=== PATIENT | male | born 1960 | race Caucasian/White ===

== ENCOUNTER 2016-03-22 10:12 | Outpatient (CLI) | payer MEDICARE, MEDICAID ==
[2016-03-22 11:32] LABS: ALT (SGPT) 19 U/L (0-55); AST (SGOT) 18 U/L (5-34); Alkaline Phosphatase 70 U/L (40-150); Anion Gap 14 mmol/L (10-20); BUN (Urea Nitrogen) 11 mg/dL (8.4-25.7); Bilirubin, Total 0.6 mg/dL (0.2-1.2); Calc. Creatinine Clearance 0 mL/min (70-130); Calcium 9.4 mg/dL (7.8-10.44); Carbon Dioxide 25 mmol/L (22-29); Chloride 102 mmol/L (98-107); Estimated GFR-MDRD 68; Globulin 3.6 g/dL (2.4-3.5); LDL Cholesterol, Calculated 94 mg/dL
[2016-03-22 12:16] LABS: #Eosinphils 0.2 thou/uL (0.0-0.7); #Lymphocytes 1.1 thou/uL (1.20-3.40); #Monocytes 0.5 thou/uL (0.11-0.59); #Neutrophils 3.3 thou/uL (1.40-6.50); %Basophils 0.9 % (0.0-1.0); %Eosinophils 3.1 % (0.0-10.0); %Monocytes 9.2 % (0.0-10.0); Mean Platelet Volume 6.4 fL (7.4-10.4); Red Blood Cell (RBC) Count 4.34 mill/uL (4.70-6.10); White Blood Cell (WBC) Count 5.1 thou/uL (4.8-10.8)
== END 2016-03-22 10:13 | disposition home or self-care (01) ==
LOC: HPCALD 10:12
PROVIDERS: ATTEND Family Medicine
DX: E78.5 Hyperlipidemia, unspecified (principal); G40.909 Epilepsy, unspecified, not intractable, without status epilepticus; I10 Essential (primary) hypertension
CPT/HCPCS: 36415; 80053; 80061; 80156; 85025

== ENCOUNTER 2017-07-18 09:47 | Outpatient (CLI) | payer MEDICARE, MEDICAID ==
--- NOTE | 2017-07-18 17:46 | ULT ---
ABDOMINAL WALL ULTRASOUND 07/18/17 Ultrasonography of the anterior abdominal wall was done to evaluate a palpable nodule. Documentary im ages around the palpable abnormality were supplied. The nodule is poorly defined on ultrasound but me asures approximately 2.0 x 3.5 x 2.5 cm. It is slightly echogenic. Its margins are not purely discret e. It is definitely solid and not cystic, but no blood flow was seen within it. IMPRESSION: Small nodule with nondescript ultrasonographic findings. The ultrasound does not allow a diagnosis of what it may be. The fact that there is no significant blood flow makes it more likely that it is curry ign than not. It does prove that it is not a cyst. POS: HOME
== END 2017-07-18 09:48 | disposition home or self-care (01) ==
LOC: BURULT 09:47
PROVIDERS: ATTEND Family Medicine
DX: R22.2 Localized swelling, mass and lump, trunk (principal)
CPT/HCPCS: 76999

== ENCOUNTER 2017-08-04 21:02 | Emergency (ER) | payer MEDICARE, MEDICAID ==
[2017-08-04 21:24] LABS: Hemoglobin 14.3 g/dL (14.0-18.0); Mean Corpuscular HGB CONC 37.8 g/dL (32.0-36.0); Mean Corpuscular Hemoglobin 34.4 pg (27.0-31.0); Mean Corpuscular Volume 90.9 fL (78.0-98.0); Mean Platelet Volume 5.9 fL (7.4-10.4); Platelet Count 176 thou/uL (130-400); RBC Distribution Width 10.7 % (11.5-14.5); Red Blood Cell (RBC) Count 4.16 mill/uL (4.70-6.10); White Blood Cell (WBC) Count 4.6 thou/uL (4.8-10.8)
[2017-08-04] MEDS ORDERED: Nitroglycerin 0.4 MG TAB (25 Tab Bottle) ONE (21:32)
[2017-08-04] MEDS ORDERED: Ondansetron HCl/PF 4 MG/2 ML Vial ONE (21:32)
[2017-08-04 21:34] LABS: ALT (SGPT) 54 U/L (8-55); AST (SGOT) 37 U/L (5-34); Albumin 4.4 g/dL (3.5-5.0); Alkaline Phosphatase 81 U/L (40-150); Anion Gap 17 mmol/L (10-20); BUN (Urea Nitrogen) 11 mg/dL (8.4-25.7); Bilirubin, Total 0.3 mg/dL (0.2-1.2); CK (CPK) 153 U/L (30-200); Calc. Creatinine Clearance 0 mL/min (70-130); Calcium 9.3 mg/dL (7.8-10.44); Carbon Dioxide 20 mmol/L (22-29); Chloride 101 mmol/L (98-107); Estimated GFR-MDRD 77; Globulin 3.4 g/dL (2.4-3.5); Glucose 85 mg/dL (70-105); Lipase 27 U/L (8-78); Potassium 3.9 mmol/L (3.5-5.1); Protein, Total 7.8 g/dL (6.0-8.3); Sodium 134 mmol/L (136-145)
[2017-08-04 21:35] LABS: #Basophils 0.1 thou/uL (0.0-0.2); #Eosinphils 0.1 thou/uL (0.0-0.7); #Lymphocytes 1.6 thou/uL (1.20-3.40); #Monocytes 0.6 thou/uL (0.11-0.59); #Neutrophils 2.2 thou/uL (1.40-6.50); %Eosinophils 2.6 % (0.0-10.0); %Lymphocytes 35.1 % (21.0-51.0); %Monocytes 11.9 % (0.0-10.0); %Neutrophils 48.4 % (42.0-75.0); PLT Morphology Comment Appears Adequate; RBC Morphology Normal; Troponin I Less than 0.010 ng/mL (< 0.028)
[2017-08-04 21:36] LABS: MDiff Complete? YES; Manual Diff?? NO
[2017-08-04] MEDS ORDERED: Nitroglycerin 2% Ointment 1 INCH/1 GM Packet ONE (21:59)
--- NOTE | 2017-08-05 09:56 | RAD ---
PORTABLE CHEST: DATE: 08/04/17. FINDINGS: An AP portable film at 2055 is compared with an 12/23/[address] [facility]. There has been no adverse interval change. The heart is normal in size and the lungs are clear. No infiltrate or effusion is seen. There is no vascular congestion or edema. The mediastinum appears n ormal. The trachea is midline. IMPRESSION: No acute thoracic finding. POS: HOME
== END 2017-08-04 22:19 | disposition short-term general hospital (02) ==
LOC: BURERS 21:02
DX: I20.0 Unstable angina (principal); I10 Essential (primary) hypertension; Z87.891 Personal history of nicotine dependence; Z79.899 Other long term (current) drug therapy
CPT/HCPCS: 71045; 80053; 82553; 83690; 84484; 85025; 93005; 96361; 96374; J2405

== ENCOUNTER 2018-08-02 16:33 | Emergency (ER) | payer MEDICARE, MEDICAID ==
[~2018-08-02 16:33] MED LIST: Iopamidol 370 76% 100 ML VIAL ONE
[2018-08-02] MEDS ORDERED: Dextrose 50% Abboject 50 ML SYRINGE ONE (16:57)
[2018-08-02] MEDS ORDERED: Thiamine HCl 200 MG/2 ML VIAL ONE (16:57)
[2018-08-02] MEDS ORDERED: Multivit, Adult Inj 10 ML VIAL ONE (16:58)
[2018-08-02 17:12] LABS: Hemoglobin 13.8 g/dL (14.0-18.0); Mean Corpuscular HGB CONC 34.2 g/dL (32.0-36.0); Mean Corpuscular Hemoglobin 33.4 pg (27.0-31.0); Mean Corpuscular Volume 97.9 fL (78.0-98.0); Mean Platelet Volume 6.4 fL (7.4-10.4); Platelet Count 181 thou/uL (130-400); RBC Distribution Width 10.5 % (11.5-14.5); Red Blood Cell (RBC) Count 4.12 mill/uL (4.70-6.10); White Blood Cell (WBC) Count 5.2 thou/uL (4.8-10.8)
[2018-08-02 17:15] LABS: Band 9 % (5-11); Lymphocytes 24 % (21-51); MDiff Complete? YES; Monocytes 5 % (0-10); Neutrophil 60 % (42-75); Reactive Lymphocytes 2 % (0-10)
[2018-08-02 17:16] LABS: ALT (SGPT) 27 U/L (8-55); AST (SGOT) 20 U/L (5-34); Albumin 4.2 g/dL (3.5-5.0); Alkaline Phosphatase 67 U/L (40-150); Anion Gap 14 mmol/L (10-20); BUN (Urea Nitrogen) 8 mg/dL (8.4-25.7); Bilirubin, Total 0.4 mg/dL (0.2-1.2); Calc. Creatinine Clearance 0 mL/min (70-130); Calcium 9.2 mg/dL (7.8-10.44); Carbon Dioxide 20 mmol/L (22-29); Chloride 99 mmol/L (98-107); Estimated GFR-MDRD 89; Globulin 3.3 g/dL (2.4-3.5); Glucose 97 mg/dL (70-105); Lipase 12 U/L (8-78); Potassium 3.9 mmol/L (3.5-5.1); Protein, Total 7.5 g/dL (6.0-8.3); Sodium 129 mmol/L (136-145)
[2018-08-02 17:17] LABS: Acetaminophen Less than 6.0 mcg/mL (10.0-30.0); Alcohol Less than 10 mg/dL (Less than 10); Salicylate Less than 8.0 mg/dL (15.0-30.0)
[2018-08-02] MEDS ORDERED: Lorazepam 2 MG/ML VIAL ONE (17:52)
--- NOTE | 2018-08-02 18:08 | CT ---
CT OF THE BRAIN WITHOUT CONTRAST 08/02/[address] was performed for evaluation of nausea, vomiting, and lightheadedness. Comparison was made with an 12/23/15 study. The ventricles are normal in size for age and atrophy. No intracranial bleeding, mass, or sign of str celestino was found. The visible paranasal sinuses are clear, as are the mastoid air cells. IMPRESSION: No acute intracranial findings. POS: HOME
[2018-08-02] MEDS ORDERED: Ondansetron PF 4 MG/2 ML Vial ONE (18:24)
--- NOTE | 2018-08-02 18:28 | CT ---
CT ABDOMEN AND PELVIS WITH CONTRAST: 08/02/18 Comparison is made with the prior study of 02/01/11 done at [facility]. Axial slices were ac quired followed by coronal and sagittal reconstructions. The lung bases are clear except for some dependent atelectasis. The liver, spleen, pancreas, adrenal glands and abdominal aorta showed no acute findings. There has been a prior cholecystectomy. There ar e multiple hypolucencies in each kidney consistent with multiple cysts. A small renal mass would be m issed against this background. There is a large exophytic cystic lesion of the left kidney, lower sharla e. It measured 2.5 cm in 2011 and today measures 3.7 cm. The internal density is slightly higher denis n a typical cyst at 20 units, however, that is no different than the 2011 study. There are no inflammatory changes around bowel or bowel wall thickening. A few scattered diverticula are present without definite findings of diverticulitis. There is one fluid filled loop of distal sma ll bowel in the pelvic region but its rojas are not thick. There is no free air or free fluid noted. CT of the pelvis shows no pelvic masses, free fluid, or inflammatory changes. Degenerative changes ar e present in the patient's lumbar spine, particularly at L4-L5. Additionally, there is a rather large posterior osteophyte at T12-L1 that significantly crowds the spinal canal. IMPRESSION: 1. No acute abdominal or pelvic findings except for one loop of mildly dilated fluid filled smal l bowel. Infectious or inflammatory etiologies are possible. There is no sign of obstruction. 2. Multiple renal cysts including a large exophytic cyst of the left kidney. It is increased in size since 2010. POS: HOME
== END 2018-08-02 18:44 | disposition home or self-care (01) ==
LOC: BURERS 16:33
DX: R11.2 Nausea with vomiting, unspecified (principal); G40.909 Epilepsy, unspecified, not intractable, without status epilepticus; Z87.891 Personal history of nicotine dependence
CPT/HCPCS: 70450; 74177; 80053; 80307; 83605; 83690; 83880; 84484; 85025; 93005; 96365; 96366; 96368; 96375; J2060; J2405; J3411; Q9967

== ENCOUNTER 2019-01-24 08:06 | Emergency (ER) | payer MEDICARE, MEDICAID ==
[2019-01-24] MEDS ORDERED: Fentanyl 100 MCG/2 ML VIAL ONE (08:37)
[2019-01-24 08:43] LABS: #Basophils 0.1 thou/uL (0.0-0.2); #Eosinphils 0.1 thou/uL (0.0-0.7); #Lymphocytes 1.5 thou/uL (1.20-3.40); #Monocytes 0.9 thou/uL (0.11-0.59); %Basophils 0.6 % (0.0-1.0); %Eosinophils 0.4 % (0.0-10.0); %Lymphocytes 10.8 % (21.0-51.0); %Monocytes 6.4 % (0.0-10.0); %Neutrophils 81.8 % (42.0-75.0); Hemoglobin 14.9 g/dL (14.0-18.0); Mean Corpuscular HGB CONC 33.9 g/dL (32.0-36.0); Mean Corpuscular Hemoglobin 32.4 pg (27.0-31.0); Mean Corpuscular Volume 95.6 fL (78.0-98.0); Mean Platelet Volume 6.6 fL (7.4-10.4); Platelet Count 174 thou/uL (130-400); RBC Distribution Width 10.9 % (11.5-14.5); White Blood Cell (WBC) Count 13.4 thou/uL (4.8-10.8)
[2019-01-24 08:47] LABS: Bilirubin Small (Negative); Blood, Urine Negative (Negative); Clarity Clear (Clear); Glucose, Urine (Dipstick) Negative (Negative); Leukocyte Negative (Negative); Nitrite Negative (Negative); Protein, Urine (Dipstick) 30 mg/dL (Neg-Trace); Urobilinogen > or = 8.0 mg/dL (Less than 2)
[2019-01-24 08:57] LABS: ALT (SGPT) 27 U/L (8-55); AST (SGOT) 19 U/L (5-34); Albumin 4.3 g/dL (3.5-5.0); Alkaline Phosphatase 79 U/L (40-110); Anion Gap 14 mmol/L (10-20); BUN (Urea Nitrogen) 13 mg/dL (8.4-25.7); Bilirubin, Total 1.3 mg/dL (0.2-1.2); Calc. Creatinine Clearance 0 mL/min (70-130); Calcium 9.6 mg/dL (7.8-10.44); Carbon Dioxide 24 mmol/L (22-29); Chloride 101 mmol/L (98-107); Estimated GFR-MDRD 66; Globulin 3.7 g/dL (2.4-3.5); Glucose 122 mg/dL (70-105); Sodium 135 mmol/L (136-145)
[2019-01-24 09:00] LABS: Bacteria/HPF Rare-Few HPF (None Seen); RBC/HPF 0-3 HPF (0-3); Squamous Epithelial 0-3 HPF (0-3); WBC/HPF 0-3 HPF (0-3)
[2019-01-24] MEDS ORDERED: Piperacillin/Tazobactam 4.5 GM VIAL ONE (09:01)
[2019-01-24] MEDS ORDERED: Ciprofloxacin Lactate/D5W 400 mg/200 ml Premix ONE (09:51)
--- NOTE | 2019-01-24 16:44 | CT ---
CT ABDOMEN AND PELVIS WITH CONTRAST: 01/24/[address] of the abdomen and pelvis was done after giving IV contrast. The lung bases are clear except for some dependent atelectasis. The liver is minimally generous in si ze but otherwise appears normal. The spleen and pancreas are unremarkable. There has been a prior cho lecystectomy. There is a little more fluid than usual and perhaps even a little bit of mucosal thicke ally in the duodenum and proximal jejunum, but there are no distended loops to suggest obstruction. S imilarly in the cecal region there is some questionable thickening of folds. The kidneys show multip le cysts, the largest being a large exophytic cyst attached to the left kidney that is 3.8 cm long. T he aorta is normal in size. The major finding on the study is an area of prominent inflammation around the sigmoid colon. Diverti culitis is diagnosed. On one image, there is a question of a tiny amount of extraluminal air. I canno t tell if it is truly extraluminal or in a diverticulum. There is no focal drainable abscess. No sign ificant amount of free fluid was seen. CT of the pelvis was remarkable for the diverticular findings. The urinary bladder shows some uniform thickening, though the bladder is not fully distended, so it may or may not have meaning. There may be some minimal disc bulging at L4-L5 and L5-S1. Some mild arthritic changes are see in the lumbar sp ine. IMPRESSION: Sigmoid diverticulitis. See discussion above. Findings discussed with Dr. Harris at 0936 on 01/24/19. POS: HOME
== END 2019-01-24 10:09 | disposition home or self-care (01) ==
LOC: BURERS 08:06
DX: K57.20 Diverticulitis of large intestine with perforation and abscess without bleeding (principal); I10 Essential (primary) hypertension; R11.2 Nausea with vomiting, unspecified; G40.409 Other generalized epilepsy and epileptic syndromes, not intractable, without status epilepticus; F32.9 Major depressive disorder, single episode, unspecified; Z87.891 Personal history of nicotine dependence; Z79.899 Other long term (current) drug therapy
CPT/HCPCS: 74177; 80053; 81003; 81015; 83605; 85025; 96365; 96375; J0744; J2543; J3010

== ENCOUNTER 2019-08-25 09:36 | Outpatient (CLI) | payer MEDICARE, MEDICAID ==
--- NOTE | 2019-08-25 14:15 | RAD ---
RIGHT KNEE 4 VIEWS: DATE: 08/25/2019. FINDINGS: No fracture, joint space narrowing, or osteophytes were seen. There is no joint effusion. No bony d estructive lesions are present. On some of the views, there was a questionable slight lucency along the articular aspect of the media l femoral condyle like what might be seen from an old osteochondral injury. The finding is faint and equivocal at best. If further workup were needed, an MRI might be helpful, but currently the appear ance of the finding is not very overwhelming. IMPRESSION: Probably negative study. POS: HOME
== END 2019-08-25 09:37 | disposition home or self-care (01) ==
LOC: BURRAD 09:36
PROVIDERS: ATTEND Family Medicine
DX: M25.561 Pain in right knee (principal)

== ENCOUNTER 2019-12-08 09:23 | Observation (INO) | payer MEDICARE, MEDICAID ==
[2019-12-08 10:02] LABS: #Lymphocytes 0.9 thou/uL (1.20-3.40); #Monocytes 0.2 thou/uL (0.11-0.59); #Neutrophils 2.4 thou/uL (1.40-6.50); %Basophils 0.8 % (0.0-1.0); %Eosinophils 1.3 % (0.0-10.0); %Lymphocytes 24.1 % (21.0-51.0); %Monocytes 6.8 % (0.0-10.0); %Neutrophils 67.1 % (42.0-75.0); Hemoglobin 14.9 g/dL (14.0-18.0); Mean Corpuscular HGB CONC 33.2 g/dL (32.0-36.0); Mean Corpuscular Volume 99.4 fL (78.0-98.0); Mean Platelet Volume 6.9 fL (7.4-10.4); Platelet Count 205 thou/uL (130-400); RBC Distribution Width 10.3 % (11.5-14.5); Red Blood Cell (RBC) Count 4.52 mill/uL (4.70-6.10); White Blood Cell (WBC) Count 3.6 thou/uL (4.8-10.8)
[2019-12-08 10:21] LABS: ALT (SGPT) 98 U/L (8-55); AST (SGOT) 59 U/L (5-34); Albumin 3.8 g/dL (3.5-5.0); Alkaline Phosphatase 86 U/L (40-110); Anion Gap 13 mmol/L (10-20); BUN (Urea Nitrogen) 15 mg/dL (8.4-25.7); Bilirubin, Total 0.4 mg/dL (0.2-1.2); Calc. Creatinine Clearance 0 mL/min (70-130); Calcium 9.1 mg/dL (7.8-10.44); Carbon Dioxide 25 mmol/L (22-29); Chloride 105 mmol/L (98-107); Estimated GFR-MDRD 78; Globulin 3.9 g/dL (2.4-3.5); Glucose 126 mg/dL (70-105); Lipase 57 U/L (8-78); Potassium 3.6 mmol/L (3.5-5.1); Protein, Total 7.7 g/dL (6.0-8.3); Sodium 139 mmol/L (136-145)
[2019-12-08] MEDS ORDERED: Albuterol Sulfate 2.5 mg/3 ml Neb ONE (10:34)
[2019-12-08] MEDS ORDERED: Dexamethasone 4 mg/ml Vial ONE (10:36)
[2019-12-08] MEDS ORDERED: Albuterol 200 PUFF (6.7GM INHALER) ONE (10:36)
[2019-12-08] MEDS ORDERED: Aspirin Chewable 81 MG TAB ONE (10:36)
[2019-12-08] MEDS ORDERED: Ondansetron PF 4 MG/2 ML Vial ONE (10:36)
[2019-12-08] MEDS ORDERED: cefTRIAXone\\ROCEPHIN 2 GM VIAL ONE (11:17)
[2019-12-08 12:27] LABS: INR-International Normal Ratio 0.9; Prothrombin Time 12.6 sec (12.0-14.7)
[2019-12-08 12:47] LABS: Lactic Acid 1.2 mmol/L (0.5-2.2)
--- NOTE | 2019-12-08 13:33 | RAD ---
PORTABLE CHEST: Date: 12/08/2019 An AP portable film at 1100 hours is compared with the 08/04/2017 study. Some of the lung markings are perhaps slightly prominent, but no focal infiltrate or effusion seen. T he heart is normal in size. There is no vascular congestion or edema. No focal pneumonia was found. IMPRESSION: No definite acute findings. POS: HOME
--- NOTE | 2019-12-08 13:47 | CT ---
CT ANGIO OF CHEST: Date: 12/08/2019] Spiral CT of the chest was done after a bolus of IV contrast. There is excellent opacification of pul monary arteries. There were no filling defects to suggest emboli. The aorta showed no sign of aneurys m or dissection. Coronary artery calcification seems minimal. No mediastinal adenopathy of concern or mass was seen. The major finding on this study is severe emphysematous change throughout the lungs b ilaterally, with particular severe cystic changes in the upper lobes. Some fibrotic changes and atele ctasis are seen in the dependent portions of the lower lobes. No effusions are present. The visible p ortions of the upper abdomen showed no finding of concern. IMPRESSION: 1. No evidence for pulmonary embolism. 2. Very severe emphysematous changes. No findings of pneumonia at this time. 3. Comment: Not mentioned above, but present, are some areas of scarring in the lung apices. One of those areas in the very top of the left lung apex is slightly spiculated and is about 1.0 cm in size. While the odds are this is just scarring, in view of the remainder of the patient's lungs, it might be prudent to get a follow-up chest x-ray of this area in the next 3-6 months, checking for any poten tial growth. Findings discussed with Dr. Helms at 1149 hours on 01/08/2020. CODE CR. POS: HOME
[2019-12-08 15:34] VITALS: BMI 26.6
[2019-12-08] MEDS ORDERED: Acetaminophen 325 MG TAB PO PRN (16:45)
[2019-12-08] MEDS ORDERED: Ondansetron PF 4 MG/2 ML Vial IVP PRN (16:45)
[2019-12-08] MEDS ORDERED: Ondansetron ODT 4 MG TAB SL PRN (16:45)
[2019-12-08] MEDS ORDERED: Cyclobenzaprine 10 MG TAB PO PRN (17:00)
[2019-12-08] MEDS ORDERED: Iopamidol 370 76% 100 ML VIAL ONE (17:02)
[2019-12-08] MEDS ORDERED: Dextrose 5 %-0.45 % NaCl 1,000 ML IV SCH (17:15)
[2019-12-08] MEDS: Albuterol 200 PUFF (6.7GM INHALER) INH SCH ×2 (17:59→21:40)
[2019-12-08] MEDS ORDERED: Enoxaparin Sodium 40 MG/0.4 ML SYRINGE SC SCH (21:00)
[2019-12-08] MEDS: Diazepam 5 MG TAB PO SCH (21:36)
[2019-12-08] MEDS: Famotidine 20 MG TAB PO SCH (21:36)
[2019-12-08] MEDS: Mometasone/Formoterol 200/5 60 PUFF INH SCH (21:36)
[2019-12-08] MEDS: carBAMazepine 200 MG TAB PO SCH (21:36)
[2019-12-08] MEDS: Gabapentin 300 MG CAP PO SCH (21:36)
--- NOTE | 2019-12-09 01:16 | HP ---
CHIEF COMPLAINT: Generalized weakness. HISTORY OF PRESENT ILLNESS: 59-year-old male presented to the [facility] Emergency Department earlier today with complaints of progressive worsening of body aches, weakness, generalized malaise accompanied by dyspnea, cough, and poor intake. The patient was evaluated at the [facility] on 12/03/2019, five days ago for similar symptoms, in which he was tested for COVID and the patient was started empirically at that time on azithromycin and daily dexamethasone. Subsequent testing for COVID was found to be positive couple days later. Patient states he initially did feel better, but has since declined in regard to his respiratory status and in overall intake. Patient reports his last fever was several days ago. He reports to be taking the prescribed medications as scheduled. He is a former smoker, but has up to this point no formal diagnosis of COPD. In the emergency department, imaging was obtained and concerning for very severe emphysematous changes. The initial lab work showed an elevated D-dimer and elevated lactic acid as well. CTA of the chest did rule out pulmonary embolus, but did reveal the emphysematous changes of the patient's lungs. The patient was treated with 2 g IV Rocephin, 10 mg of IV dexamethasone, Ventolin inhaler, and intravenous fluids within the emergency department. Secondary to the patient's deconditioned state, dehydration, and concern for COVID pneumonia, he has been admitted under observation status. PAST MEDICAL HISTORY: Includes seizure disorder, hypertension, chronic back pain. PAST SURGICAL HISTORY: Includes cholecystectomy and prior back surgery. SOCIAL HISTORY: He is a former smoker, who quit approximately 8 years ago. Denies illicit drug use. He does have daily alcohol use, less than 5 drinks per day. FAMILY HISTORY: Noncontributory. ALLERGIES: ACETAMINOPHEN. CURRENT MEDICATIONS: 1. Tramadol 50 mg q.4 hours p.r.n. 2. Carbamazepine 200 mg b.i.d. 3. Theragran multivitamin daily. 4. Lisinopril 20 mg daily. 5. Gabapentin 300 mg t.i.d. 6. Folic acid 1 mg daily. 7. Famotidine 20 mg b.i.d. 8. Diazepam 5 mg t.i.d. 9. Cyclobenzaprine 10 mg t.i.d. p.r.n. 10. Vitamin B12 1000 mcg p.o. daily. REVIEW OF SYSTEMS: GENERAL: The patient complains of fatigue and recent fever. EAR, NOSE, AND THROAT: Complains of sore throat, nasal drainage, congestion. CARDIOVASCULAR: Denies chest pain or palpitations. RESPIRATORY: Complains of shortness of breath and cough. GASTROINTESTINAL: Denies abdominal pain. He has had recent nausea and loose stools. GENITOURINARY: Denies dysuria. MUSCULOSKELETAL: Complains of chronic back pain. DERMATOLOGIC: Denies rash. NEUROLOGIC: Denies headache. LABORATORY DATA: White blood cell count 3.6, hemoglobin 14.9, hematocrit 44.9, platelets 205. D-dimer is 1.45. INR 0.9. Sodium 139, potassium 3.6, BUN 15, creatinine 0.98, GFR 78, glucose 126. Initial lactic acid 2.5, repeat lactic acid 1.2; AST 59; ALT 98; alkaline phosphatase 86. Troponin less than 0.010. BNP less than 10. Lipase 57. IMAGING: On 12/08/2019, chest x-ray shows no definite acute findings. On 12/08/2019, CTA of chest shows no evidence of pulmonary embolism, very severe emphysematous changes, no findings of pneumonia at this time, not mentioned above, but present or some areas of scarring in the lung apices. One of these areas in the very top of the lung apex is slightly spiculated and is about 1 cm in size. Suspected this is just scarring. In view of the remainder of the patient's lungs, it might be prudent to get a followup chest x-ray of this area in the next 3-6 months, checking for any potential growth. PHYSICAL EXAMINATION: VITAL SIGNS: Temperature is 97.8, pulse is 58, respiratory rate is 18, oxygen is 95% on room air, and blood pressure 142/80. GENERAL: The patient is alert and oriented, moderately ill-appearing with generalized weakness. HEAD, EYES, EARS, NOSE, AND THROAT: Normocephalic, atraumatic. Hearing is grossly intact. Extraocular muscles are intact bilaterally. He has dry mucous membranes with mild oropharyngeal erythema without exudate. NECK: Supple with no lymphadenopathy. CARDIOVASCULAR: Regular rate and rhythm. No murmurs, rubs, or gallops. RESPIRATORY: Diminished breath sounds throughout. No wheezing. No respiratory distress. GASTROINTESTINAL: Soft, nontender to palpation. Normal bowel sounds. EXTREMITIES: No clubbing, cyanosis, or edema. MUSCULOSKELETAL: Pain with range of motion of the back, poor range of motion overall. SKIN: No rashes. NEUROLOGICAL: Cranial nerves II through XII are grossly intact. Nonfocal exam. ASSESSMENT AND PLAN: 1. Dehydration. We will provide the patient with D5 half-normal saline at 50 mL an hour overnight. We will advance his diet as tolerated. 2. Coronavirus disease positive. The patient completed a 5-day course of azithromycin yesterday and will resume on dexamethasone at 6 mg daily. The patient is on appropriate precautions. We will follow up, obtained blood cultures. 3. Generalized weakness. We will seek a physical therapy evaluation. 4. Emphysema. This is a new finding. Patient is not currently oxygen dependent. We will start scheduled DuoNeb and on controller medicine Dulera and monitor oxygen to maintain sats greater than 92%. 5. Seizure disorder. We will resume the patient's usual carbamazepine dosing. 6. Hypertension. The patient is currently hemodynamically stable. Resume his ARIN inhibitor. 7. Chronic back pain. We will resume the patient's tramadol. 8. Elevated transaminase, unclear etiology. We will repeat metabolic panel in the morning. 9. Prophylaxis. We will provide Lovenox for deep vein thrombosis prophylaxis along with SCDs and the patient is on famotidine, which we resumed in regard to GI prophylaxis. Job ID: [id number] [facility]
[2019-12-09] MEDS: traMADol HCl 50 MG TAB PO PRN ×2 (04:05→09:23)
[2019-12-09] MEDS: Albuterol 200 PUFF (6.7GM INHALER) INH SCH ×4 (04:06→13:39)
[2019-12-09 05:38] LABS: #Lymphocytes 1.3 thou/uL (1.20-3.40); #Monocytes 0.3 thou/uL (0.11-0.59); #Neutrophils 1.7 thou/uL (1.40-6.50); %Basophils 0.7 % (0.0-1.0); %Eosinophils 1.1 % (0.0-10.0); %Lymphocytes 37.7 % (21.0-51.0); %Neutrophils 50.5 % (42.0-75.0); Hemoglobin 13.1 g/dL (14.0-18.0); Mean Corpuscular HGB CONC 34.9 g/dL (32.0-36.0); Mean Corpuscular Hemoglobin 33.8 pg (27.0-31.0); Mean Corpuscular Volume 97.1 fL (78.0-98.0); Platelet Count 181 thou/uL (130-400); Red Blood Cell (RBC) Count 3.87 mill/uL (4.70-6.10); White Blood Cell (WBC) Count 3.4 thou/uL (4.8-10.8)
[2019-12-09 05:47] LABS: ALT (SGPT) 89 U/L (8-55); AST (SGOT) 47 U/L (5-34); Albumin 3.2 g/dL (3.5-5.0); Alkaline Phosphatase 70 U/L (40-110); Anion Gap 13 mmol/L (10-20); BUN (Urea Nitrogen) 12 mg/dL (8.4-25.7); Bilirubin, Total 0.3 mg/dL (0.2-1.2); Calc. Creatinine Clearance 113 mL/min (70-130); Calcium 8.3 mg/dL (7.8-10.44); Carbon Dioxide 26 mmol/L (22-29); Chloride 106 mmol/L (98-107); Estimated GFR-MDRD Greater than 90; Globulin 3.1 g/dL (2.4-3.5); Glucose 110 mg/dL (70-105); Potassium 3.8 mmol/L (3.5-5.1); Protein, Total 6.3 g/dL (6.0-8.3); Sodium 141 mmol/L (136-145)
[2019-12-09] MEDS: Mometasone/Formoterol 200/5 60 PUFF INH SCH (06:12)
[2019-12-09] MEDS ORDERED: Folic Acid 1 MG TAB PO SCH (09:00)
[2019-12-09] MEDS ORDERED: Multivitamin W/ Minerals 1 TAB PO SCH (09:00)
[2019-12-09] MEDS ORDERED: Cyanocobalamin (Vitamin B-12) 1,000 MCG TAB PO SCH (09:00)
[2019-12-09] MEDS ORDERED: Lisinopril 20 MG TAB PO SCH (09:00)
[2019-12-09] MEDS ORDERED: Ondansetron ODT 4 MG TAB PO SCH (09:00)
[2019-12-09] MEDS ORDERED: Dexamethasone 4 MG TAB PO SCH ×2 (09:00)
[2019-12-09] MEDS: Gabapentin 300 MG CAP PO SCH ×2 (09:01→15:27)
[2019-12-09] MEDS: Diazepam 5 MG TAB PO SCH ×2 (09:01→15:27)
[2019-12-09] MEDS: Famotidine 20 MG TAB PO SCH (09:01)
[2019-12-09] MEDS: carBAMazepine 200 MG TAB PO SCH (09:01)
[2019-12-09] MEDS ORDERED: cefTRIAXone\\ROCEPHIN 1 GM in Sodium Chloride 0.9% 100 ML IVPB SCH (11:00)
[2019-12-09] MEDS ORDERED: Tiotropium Bromide 4 GM INHALER IH SCH ×2 (17:00)
[2019-12-09] MEDS ORDERED: Albuterol 200 PUFF (6.7GM INHALER) INH SCH ×3 (17:00→21:00)
[2019-12-09 17:36] VITALS: BP 143/74; TEMP 97.7
[2019-12-09] MEDS ORDERED: Cyclobenzaprine 10 MG TAB PO PRN (18:08)
[2019-12-09] MEDS ORDERED: traMADol HCl 50 MG TAB PO PRN (18:08)
[2019-12-09] MEDS ORDERED: Ondansetron ODT 4 MG TAB SL PRN (18:08)
[2019-12-09] MEDS ORDERED: Ondansetron PF 4 MG/2 ML Vial IVP PRN (18:08)
[2019-12-09] MEDS ORDERED: Diazepam 5 MG TAB PO SCH (21:00)
[2019-12-09] MEDS ORDERED: Mometasone/Formoterol 200/5 60 PUFF INH SCH ×2 (21:00)
[2019-12-09] MEDS ORDERED: Gabapentin 300 MG CAP PO SCH (21:00)
[2019-12-09] MEDS ORDERED: Famotidine 20 MG TAB PO SCH (21:00)
[2019-12-09] MEDS ORDERED: carBAMazepine 200 MG TAB PO SCH (21:00)
[2019-12-09] MEDS ORDERED: Enoxaparin Sodium 40 MG/0.4 ML SYRINGE SC SCH (21:00)
--- NOTE | 2019-12-10 04:13 | DIS ---
DATE OF OBS ADMISSION: 12/08/2019 DATE OF OBS DISCHARGE to SWING BED STATUS: 12/09/2019 ADMISSION DIAGNOSES: Dehydration, COVID positive, generalized weakness, emphysema. SECONDARY DIAGNOSES: Seizure disorder, hypertension, chronic back pain, elevated liver transaminases. PROCEDURES PERFORMED: 12/08/2019, chest x-ray showed no definite acute findings. 12/08/2019, CTA of the chest showed no evidence for pulmonary embolism. Very severe emphysematous changes. No findings of pneumonia at this time; not mentioned above, but present are some areas of scarring in the lung apices. One of those areas in the very top of the left lung apex is slightly spiculated and is about 1 cm in size while the just scarring in view of the remainder of the patient's lungs. It might be prudent to get a followup chest x-ray of this area in the next 3 to 6 months, checking for any potential growth. HOSPITAL COURSE: A 59-year-old male, who presented to the [facility] Emergency Department with complaints of progressive worsening of oral intake, generalized weakness with malaise along with upper respiratory symptoms including cough and dyspnea. Prior to his evaluation in the emergency department, he did test positive for COVID on 12/03/2019; at that time, he was treated empirically with azithromycin and dexamethasone. Unfortunately, his overall status did not improve. Evaluation in the emergency department revealed an elevated lactic acid level, dehydration status and severe emphysematous changes per imaging. He was treated empirically with IV Rocephin, IV dexamethasone, IV fluids and use of Ventolin inhaler in the emergency department. Secondary to his deconditioned state, dehydration, and concern for COVID based pneumonia he was admitted under observation status for further care. The patient has received D5 half-normal saline, IV fluids overnight secondary to his poor oral intake. The patient's lactic acidosis resolved and he did feel improved overall. His labs are largely stable with no leukocytosis. Secondary to his imaging, he was not resumed on antibiotic therapy; however, he was provided with scheduled albuterol inhaler treatments along with initiation of controller medication, Dulera for COPD. He did remain stable on room air without supplemental oxygen. He did remain afebrile as well. Secondary to his deconditioning, he was evaluated by Physical Therapy and found not suitable to return home safely - it was found today that his sister who lives with him is in their home, and he is unable to properly care for himself at this time; therefore, he will d/c to swing bed status for further shelter and therapy. DISPOSITION: The patient will discharge from obs admission to swing bed status for further shelter and rehab. DISCHARGE MEDICATIONS: 1. Tramadol 50 mg q.4 hours p.r.n. 2. Carbamazepine 200 mg b.i.d. 3. Theragran multivitamin daily. 4. Lisinopril 20 mg daily. 5. Gabapentin 300 mg t.i.d. 6. Folic acid 1 mg daily. 7. Famotidine 20 mg b.i.d. 8. Diazepam 5 mg t.i.d. 9. Cyclobenzaprine 10 mg t.i.d. p.r.n. 10. Vitamin B12 of 1000 mcg p.o. daily. New medications will be Dulera 200 mcg per 5 mcg inhaler 2 puffs b.i.d, Spiriva Respimat 2 actuations inhaled daily and Proventil inhaler 2 puffs q.4 hours p.r.n. Time spent in planning and discharge of this patient, greater than 30 minutes. Job ID: [id number] [facility]
[2019-12-10] MEDS ORDERED: Folic Acid 1 MG TAB PO SCH (09:00)
[2019-12-10] MEDS ORDERED: Multivitamin W/ Minerals 1 TAB PO SCH (09:00)
[2019-12-10] MEDS ORDERED: Cyanocobalamin (Vitamin B-12) 1,000 MCG TAB PO SCH (09:00)
[2019-12-10] MEDS ORDERED: Lisinopril 20 MG TAB PO SCH (09:00)
[2019-12-10] MEDS ORDERED: Tiotropium Bromide 4 GM INHALER IH SCH ×3 (09:00→17:00)
[2019-12-10] MEDS ORDERED: Dexamethasone 4 MG TAB PO SCH (09:00)
[2019-12-10] MEDS ORDERED: cefTRIAXone\\ROCEPHIN 1 GM in Sodium Chloride 0.9% 100 ML IVPB SCH ×2 (09:00)
== END 2019-12-09 18:08 | disposition swing bed (61) ==
LOC: BURERS 09:23 → BURMED 12:15
PROVIDERS: ADMIT Family Medicine; ATTEND Family Medicine
DX: U07.1 COVID-19 (principal); E86.0 Dehydration; R53.1 Weakness; J43.9 Emphysema, unspecified; G40.909 Epilepsy, unspecified, not intractable, without status epilepticus; I10 Essential (primary) hypertension; G89.29 Other chronic pain; M54.9 Dorsalgia, unspecified; R74.01 Elevation of levels of liver transaminase levels; Z87.891 Personal history of nicotine dependence; Z79.899 Other long term (current) drug therapy; Z88.6 Allergy status to analgesic agent
CPT/HCPCS: 36415; 71045; 71275; 80053; 83605; 83690; 83880; 84484; 85025; 85379; 85610; 87040; 93005; 96365; 96366; 96367; 96372; 96375; G0378; J0696; J1100; J1650; J2405; J3490; J7611; J7620; J8540; Q0162; Q9967

== ENCOUNTER 2019-12-09 18:08 | Inpatient (IN) | payer MEDICARE, MEDICAID ==
[2019-12-09] MEDS ORDERED: Ondansetron PF 4 MG/2 ML Vial IVP PRN (19:15)
[2019-12-09] MEDS ORDERED: Ondansetron ODT 4 MG TAB PO PRN (19:16)
[2019-12-09] MEDS ORDERED: Prevnar 13-Val Conj/PF 0.5 ML SYRINGE IM ONE (21:00)
[2019-12-09] MEDS ORDERED: FLU VACC QS2020-21(6MOS UP)/PF 60 MCG/0.5 ML SYRINGE IM ONE (21:00)
[2019-12-09] MEDS: Diazepam 5 MG TAB PO SCH (21:59)
[2019-12-09] MEDS: Gabapentin 300 MG CAP PO SCH (21:59)
[2019-12-09] MEDS: Famotidine 20 MG TAB PO SCH (22:00)
[2019-12-09] MEDS: Albuterol Sulfate 2.5 mg/3 ml Neb NEB SCH (22:00)
[2019-12-09] MEDS: Enoxaparin Sodium 40 MG/0.4 ML SYRINGE SC SCH (22:00)
[2019-12-10] MEDS: traMADol HCl 50 MG TAB PO PRN ×3 (01:12→14:45)
[2019-12-10] MEDS: Ipratropium Bromide 2.5 ml Neb NEB SCH ×2 (01:13→06:17)
[2019-12-10] MEDS: Albuterol Sulfate 2.5 mg/3 ml Neb NEB SCH ×2 (03:15→08:42)
[2019-12-10] MEDS: Mometasone/Formoterol 200/5 60 PUFF INH SCH ×2 (06:16→18:26)
[2019-12-10] MEDS ORDERED: Ipratropium Oral Inhaler INH SCH ×2 (08:15→13:00)
[2019-12-10] MEDS: Famotidine 20 MG TAB PO SCH ×2 (08:35→21:50)
[2019-12-10] MEDS: carBAMazepine 200 MG TAB PO SCH ×2 (08:36→17:38)
[2019-12-10] MEDS: Lisinopril 20 MG TAB PO SCH (08:36)
[2019-12-10] MEDS: Diazepam 5 MG TAB PO SCH ×3 (08:36→21:49)
[2019-12-10] MEDS: Gabapentin 300 MG CAP PO SCH ×3 (08:37→21:50)
[2019-12-10] MEDS: Multivitamin W/ Minerals 1 TAB PO SCH (08:39)
[2019-12-10] MEDS: Cyanocobalamin (Vitamin B-12) 1,000 MCG TAB PO SCH (08:40)
[2019-12-10] MEDS ORDERED: cefTRIAXone\\ROCEPHIN 1 GM in Sodium Chloride 0.9% 100 ML IVPB SCH (09:00)
[2019-12-10] MEDS: Folic Acid 1 MG TAB PO SCH (10:40)
[2019-12-10] MEDS: Albuterol 200 PUFF (6.7GM INHALER) INH SCH ×3 (10:40→21:49)
[2019-12-10] MEDS: Enoxaparin Sodium 40 MG/0.4 ML SYRINGE SC SCH (21:50)
[2019-12-11] MEDS: Albuterol 200 PUFF (6.7GM INHALER) INH SCH ×4 (03:04→21:18)
[2019-12-11] MEDS: traMADol HCl 50 MG TAB PO PRN ×3 (05:05→23:57)
[2019-12-11] MEDS: Mometasone/Formoterol 200/5 60 PUFF INH SCH ×2 (06:21→19:19)
[2019-12-11] MEDS: Gabapentin 300 MG CAP PO SCH ×3 (09:26→21:17)
[2019-12-11] MEDS: Multivitamin W/ Minerals 1 TAB PO SCH (09:26)
[2019-12-11] MEDS: carBAMazepine 200 MG TAB PO SCH ×2 (09:27→16:30)
[2019-12-11] MEDS: Lisinopril 20 MG TAB PO SCH (09:27)
[2019-12-11] MEDS: Folic Acid 1 MG TAB PO SCH (09:27)
[2019-12-11] MEDS: Cyanocobalamin (Vitamin B-12) 1,000 MCG TAB PO SCH (09:27)
[2019-12-11] MEDS: Diazepam 5 MG TAB PO SCH ×3 (09:28→21:17)
[2019-12-11] MEDS: Tiotropium Bromide 4 GM INHALER IH SCH (09:30)
[2019-12-11] MEDS: Famotidine 20 MG TAB PO SCH ×2 (09:35→21:17)
[2019-12-11] MEDS: Enoxaparin Sodium 40 MG/0.4 ML SYRINGE SC SCH (21:18)
[2019-12-12] MEDS: Albuterol 200 PUFF (6.7GM INHALER) INH SCH ×4 (03:00→22:09)
[2019-12-12] MEDS: traMADol HCl 50 MG TAB PO PRN ×2 (06:10→22:07)
[2019-12-12] MEDS: Mometasone/Formoterol 200/5 60 PUFF INH SCH ×2 (06:10→22:09)
[2019-12-12] MEDS: Gabapentin 300 MG CAP PO SCH ×3 (08:47→22:07)
[2019-12-12] MEDS: Multivitamin W/ Minerals 1 TAB PO SCH (08:48)
[2019-12-12] MEDS: Famotidine 20 MG TAB PO SCH ×2 (08:48→22:06)
[2019-12-12] MEDS: Lisinopril 20 MG TAB PO SCH (08:49)
[2019-12-12] MEDS: Diazepam 5 MG TAB PO SCH ×3 (08:49→22:08)
[2019-12-12] MEDS: Cyanocobalamin (Vitamin B-12) 1,000 MCG TAB PO SCH (08:49)
[2019-12-12] MEDS: carBAMazepine 200 MG TAB PO SCH ×2 (08:49→16:38)
[2019-12-12] MEDS: Folic Acid 1 MG TAB PO SCH (08:49)
[2019-12-12] MEDS: Tiotropium Bromide 4 GM INHALER IH SCH (08:50)
[2019-12-12] MEDS: Enoxaparin Sodium 40 MG/0.4 ML SYRINGE SC SCH (22:10)
[2019-12-13] MEDS: Albuterol 200 PUFF (6.7GM INHALER) INH SCH ×4 (03:00→21:55)
[2019-12-13] MEDS: traMADol HCl 50 MG TAB PO PRN (05:50)
[2019-12-13] MEDS: Mometasone/Formoterol 200/5 60 PUFF INH SCH ×2 (05:51→18:14)
[2019-12-13] MEDS: Multivitamin W/ Minerals 1 TAB PO SCH (08:21)
[2019-12-13] MEDS: Cyanocobalamin (Vitamin B-12) 1,000 MCG TAB PO SCH (08:21)
[2019-12-13] MEDS: Lisinopril 20 MG TAB PO SCH (08:21)
[2019-12-13] MEDS: Gabapentin 300 MG CAP PO SCH ×3 (08:21→21:54)
[2019-12-13] MEDS: carBAMazepine 200 MG TAB PO SCH ×2 (08:22→16:14)
[2019-12-13] MEDS: Famotidine 20 MG TAB PO SCH ×2 (08:22→21:55)
[2019-12-13] MEDS: Folic Acid 1 MG TAB PO SCH (08:22)
[2019-12-13] MEDS: Diazepam 5 MG TAB PO SCH ×3 (08:22→21:55)
[2019-12-13] MEDS: Tiotropium Bromide 4 GM INHALER IH SCH (08:23)
[2019-12-13] MEDS: Cyclobenzaprine 10 MG TAB PO PRN (13:24)
[2019-12-13] MEDS: Enoxaparin Sodium 40 MG/0.4 ML SYRINGE SC SCH (21:55)
[2019-12-14] MEDS: Albuterol 200 PUFF (6.7GM INHALER) INH SCH ×4 (03:00→21:37)
[2019-12-14] MEDS: traMADol HCl 50 MG TAB PO PRN (05:31)
[2019-12-14] MEDS: Gabapentin 300 MG CAP PO SCH ×3 (08:06→21:36)
[2019-12-14] MEDS: Cyanocobalamin (Vitamin B-12) 1,000 MCG TAB PO SCH (08:06)
[2019-12-14] MEDS: Famotidine 20 MG TAB PO SCH ×2 (08:06→21:36)
[2019-12-14] MEDS: Diazepam 5 MG TAB PO SCH ×3 (08:06→21:36)
[2019-12-14] MEDS: Lisinopril 20 MG TAB PO SCH (08:07)
[2019-12-14] MEDS: Folic Acid 1 MG TAB PO SCH (08:07)
[2019-12-14] MEDS: Multivitamin W/ Minerals 1 TAB PO SCH (08:07)
[2019-12-14] MEDS: carBAMazepine 200 MG TAB PO SCH ×2 (08:07→16:56)
[2019-12-14] MEDS: Tiotropium Bromide 4 GM INHALER IH SCH (08:11)
[2019-12-14] MEDS: Mometasone/Formoterol 200/5 60 PUFF INH SCH ×2 (08:11→18:03)
[2019-12-14] MEDS: Enoxaparin Sodium 40 MG/0.4 ML SYRINGE SC SCH (21:37)
[2019-12-15] MEDS: Albuterol 200 PUFF (6.7GM INHALER) INH SCH ×4 (02:24→21:01)
[2019-12-15] MEDS: traMADol HCl 50 MG TAB PO PRN (02:28)
[2019-12-15 05:26] LABS: ALT (SGPT) 53 U/L (8-55); AST (SGOT) 20 U/L (5-34); Albumin 3.5 g/dL (3.5-5.0); Alkaline Phosphatase 75 U/L (40-110); Anion Gap 14 mmol/L (10-20); BUN (Urea Nitrogen) 13 mg/dL (8.4-25.7); Bilirubin, Total 0.5 mg/dL (0.2-1.2); Calc. Creatinine Clearance 108 mL/min (70-130); Calcium 8.9 mg/dL (7.8-10.44); Carbon Dioxide 23 mmol/L (22-29); Chloride 105 mmol/L (98-107); Globulin 3.5 g/dL (2.4-3.5); Glucose 105 mg/dL (70-105); Potassium 4.9 mmol/L (3.5-5.1); Sodium 137 mmol/L (136-145)
[2019-12-15 05:33] LABS: #Basophils 0.1 thou/uL (0.0-0.2); #Eosinphils 0.1 thou/uL (0.0-0.7); #Lymphocytes 0.9 thou/uL (1.20-3.40); #Monocytes 0.7 thou/uL (0.11-0.59); #Neutrophils 7.5 thou/uL (1.40-6.50); %Basophils 0.7 % (0.0-1.0); %Eosinophils 0.7 % (0.0-10.0); %Lymphocytes 9.4 % (21.0-51.0); %Monocytes 7.3 % (0.0-10.0); %Neutrophils 81.9 % (42.0-75.0); Hemoglobin 14.2 g/dL (14.0-18.0); Mean Corpuscular HGB CONC 34.8 g/dL (32.0-36.0); Mean Corpuscular Hemoglobin 34.1 pg (27.0-31.0); Mean Platelet Volume 7.5 fL (7.4-10.4); Platelet Count 229 thou/uL (130-400); RBC Distribution Width 10.9 % (11.5-14.5); Red Blood Cell (RBC) Count 4.17 mill/uL (4.70-6.10); White Blood Cell (WBC) Count 9.2 thou/uL (4.8-10.8)
[2019-12-15 05:44] LABS: Platelet Morphology Comment Appears Adequate; RBC Morphology Normal
[2019-12-15] MEDS: Mometasone/Formoterol 200/5 60 PUFF INH SCH ×2 (06:24→18:27)
[2019-12-15] MEDS: Folic Acid 1 MG TAB PO SCH (07:51)
[2019-12-15] MEDS: Gabapentin 300 MG CAP PO SCH ×3 (07:51→21:02)
[2019-12-15] MEDS: carBAMazepine 200 MG TAB PO SCH ×2 (07:51→16:50)
[2019-12-15] MEDS: Tiotropium Bromide 4 GM INHALER IH SCH (07:51)
[2019-12-15] MEDS: Diazepam 5 MG TAB PO SCH ×3 (07:51→21:02)
[2019-12-15] MEDS: Multivitamin W/ Minerals 1 TAB PO SCH (07:51)
[2019-12-15] MEDS: Cyanocobalamin (Vitamin B-12) 1,000 MCG TAB PO SCH (07:51)
[2019-12-15] MEDS: Famotidine 20 MG TAB PO SCH ×2 (07:51→21:02)
[2019-12-15] MEDS: Lisinopril 20 MG TAB PO SCH (07:52)
[2019-12-15] MEDS: FLUoxetine HCl 10 MG CAP PO SCH (08:45)
[2019-12-15] MEDS: Enoxaparin Sodium 40 MG/0.4 ML SYRINGE SC SCH (21:02)
[2019-12-16] MEDS: Albuterol 200 PUFF (6.7GM INHALER) INH SCH ×4 (03:42→20:55)
[2019-12-16] MEDS: Mometasone/Formoterol 200/5 60 PUFF INH SCH ×2 (05:42→21:00)
[2019-12-16] MEDS: FLUoxetine HCl 10 MG CAP PO SCH (07:53)
[2019-12-16] MEDS: Famotidine 20 MG TAB PO SCH ×2 (07:53→20:54)
[2019-12-16] MEDS: Multivitamin W/ Minerals 1 TAB PO SCH (07:54)
[2019-12-16] MEDS: Gabapentin 300 MG CAP PO SCH ×3 (07:54→20:54)
[2019-12-16] MEDS: Lisinopril 20 MG TAB PO SCH (07:54)
[2019-12-16] MEDS: Folic Acid 1 MG TAB PO SCH (07:55)
[2019-12-16] MEDS: Diazepam 5 MG TAB PO SCH ×3 (07:55→20:54)
[2019-12-16] MEDS: Cyanocobalamin (Vitamin B-12) 1,000 MCG TAB PO SCH (07:55)
[2019-12-16] MEDS: carBAMazepine 200 MG TAB PO SCH ×2 (07:55→17:08)
[2019-12-16] MEDS: Tiotropium Bromide 4 GM INHALER IH SCH (07:58)
[2019-12-16] MEDS: traMADol HCl 50 MG TAB PO PRN (10:52)
[2019-12-16] MEDS: Enoxaparin Sodium 40 MG/0.4 ML SYRINGE SC SCH (20:54)
[2019-12-17] MEDS: Albuterol 200 PUFF (6.7GM INHALER) INH SCH ×4 (03:28→21:35)
[2019-12-17] MEDS: traMADol HCl 50 MG TAB PO PRN ×3 (04:09→17:07)
[2019-12-17] MEDS: Gabapentin 300 MG CAP PO SCH ×3 (08:26→21:11)
[2019-12-17] MEDS: Famotidine 20 MG TAB PO SCH ×2 (08:26→21:11)
[2019-12-17] MEDS: carBAMazepine 200 MG TAB PO SCH ×2 (08:27→17:03)
[2019-12-17] MEDS: Folic Acid 1 MG TAB PO SCH (08:27)
[2019-12-17] MEDS: Cyanocobalamin (Vitamin B-12) 1,000 MCG TAB PO SCH (08:27)
[2019-12-17] MEDS: FLUoxetine HCl 10 MG CAP PO SCH (08:27)
[2019-12-17] MEDS: Multivitamin W/ Minerals 1 TAB PO SCH (08:27)
[2019-12-17] MEDS: Diazepam 5 MG TAB PO SCH ×3 (08:28→21:11)
[2019-12-17] MEDS: Lisinopril 10 MG TAB PO SCH (08:34)
[2019-12-17] MEDS: Mometasone/Formoterol 200/5 60 PUFF INH SCH ×2 (08:39→21:36)
[2019-12-17] MEDS: Tiotropium Bromide 4 GM INHALER IH SCH (08:53)
[2019-12-17] MEDS: Enoxaparin Sodium 40 MG/0.4 ML SYRINGE SC SCH (21:10)
[2019-12-18] MEDS: Albuterol 200 PUFF (6.7GM INHALER) INH SCH ×4 (03:21→20:39)
[2019-12-18] MEDS: traMADol HCl 50 MG TAB PO PRN ×2 (05:03→09:19)
[2019-12-18] MEDS: FLUoxetine HCl 10 MG CAP PO SCH (09:02)
[2019-12-18] MEDS: carBAMazepine 200 MG TAB PO SCH ×2 (09:03→17:14)
[2019-12-18] MEDS: Gabapentin 300 MG CAP PO SCH ×3 (09:03→20:40)
[2019-12-18] MEDS: Folic Acid 1 MG TAB PO SCH (09:04)
[2019-12-18] MEDS: Multivitamin W/ Minerals 1 TAB PO SCH (09:04)
[2019-12-18] MEDS: Diazepam 5 MG TAB PO SCH ×3 (09:05→20:39)
[2019-12-18] MEDS: Cyanocobalamin (Vitamin B-12) 1,000 MCG TAB PO SCH (09:05)
[2019-12-18] MEDS: Famotidine 20 MG TAB PO SCH ×2 (09:05→20:40)
[2019-12-18] MEDS: Lisinopril 10 MG TAB PO SCH (09:20)
[2019-12-18] MEDS: Mometasone/Formoterol 200/5 60 PUFF INH SCH ×2 (09:24→20:39)
[2019-12-18] MEDS: Tiotropium Bromide 4 GM INHALER IH SCH (09:36)
[2019-12-18] MEDS: Enoxaparin Sodium 40 MG/0.4 ML SYRINGE SC SCH (20:40)
[2019-12-18] MEDS: Cyclobenzaprine 10 MG TAB PO PRN (20:40)
[2019-12-19] MEDS: Albuterol 200 PUFF (6.7GM INHALER) INH SCH ×4 (04:10→21:01)
[2019-12-19] MEDS: Cyanocobalamin (Vitamin B-12) 1,000 MCG TAB PO SCH (09:23)
[2019-12-19] MEDS: Lisinopril 10 MG TAB PO SCH (09:23)
[2019-12-19] MEDS: Multivitamin W/ Minerals 1 TAB PO SCH (09:23)
[2019-12-19] MEDS: Famotidine 20 MG TAB PO SCH ×2 (09:23→20:59)
[2019-12-19] MEDS: Folic Acid 1 MG TAB PO SCH (09:24)
[2019-12-19] MEDS: FLUoxetine HCl 10 MG CAP PO SCH (09:24)
[2019-12-19] MEDS: Gabapentin 300 MG CAP PO SCH ×3 (09:25→20:59)
[2019-12-19] MEDS: Diazepam 5 MG TAB PO SCH ×3 (09:26→21:00)
[2019-12-19] MEDS: carBAMazepine 200 MG TAB PO SCH ×2 (09:26→15:07)
[2019-12-19] MEDS: Mometasone/Formoterol 200/5 60 PUFF INH SCH ×2 (09:29→21:00)
[2019-12-19] MEDS: Tiotropium Bromide 4 GM INHALER IH SCH (09:35)
[2019-12-19] MEDS: Cyclobenzaprine 10 MG TAB PO PRN (20:59)
[2019-12-19] MEDS: Enoxaparin Sodium 40 MG/0.4 ML SYRINGE SC SCH (21:00)
[2019-12-20] MEDS: Albuterol 200 PUFF (6.7GM INHALER) INH SCH ×4 (04:03→20:41)
[2019-12-20 05:40] LABS: Hemoglobin 13.1 g/dL (14.0-18.0); Platelet Count 186 thou/uL (130-400)
[2019-12-20] MEDS: Gabapentin 300 MG CAP PO SCH ×3 (08:45→20:42)
[2019-12-20] MEDS: Lisinopril 10 MG TAB PO SCH (08:46)
[2019-12-20] MEDS: Multivitamin W/ Minerals 1 TAB PO SCH (08:47)
[2019-12-20] MEDS: Famotidine 20 MG TAB PO SCH ×2 (08:47→20:42)
[2019-12-20] MEDS: Folic Acid 1 MG TAB PO SCH (08:47)
[2019-12-20] MEDS: FLUoxetine HCl 10 MG CAP PO SCH (08:47)
[2019-12-20] MEDS: Diazepam 5 MG TAB PO SCH ×3 (08:48→20:43)
[2019-12-20] MEDS: Cyanocobalamin (Vitamin B-12) 1,000 MCG TAB PO SCH (08:48)
[2019-12-20] MEDS: carBAMazepine 200 MG TAB PO SCH ×2 (08:49→17:01)
[2019-12-20] MEDS: traMADol HCl 50 MG TAB PO PRN ×2 (08:54→17:03)
[2019-12-20] MEDS: Mometasone/Formoterol 200/5 60 PUFF INH SCH ×2 (08:57→20:41)
[2019-12-20] MEDS: Tiotropium Bromide 4 GM INHALER IH SCH (09:00)
[2019-12-20] MEDS: Cyclobenzaprine 10 MG TAB PO PRN (20:42)
[2019-12-20] MEDS: Enoxaparin Sodium 40 MG/0.4 ML SYRINGE SC SCH (20:43)
[2019-12-21] MEDS: Albuterol 200 PUFF (6.7GM INHALER) INH SCH ×4 (04:02→20:39)
[2019-12-21] MEDS: Famotidine 20 MG TAB PO SCH ×2 (08:54→20:36)
[2019-12-21] MEDS: FLUoxetine HCl 10 MG CAP PO SCH (08:54)
[2019-12-21] MEDS: Lisinopril 10 MG TAB PO SCH (08:55)
[2019-12-21] MEDS: Gabapentin 300 MG CAP PO SCH ×3 (08:56→20:34)
[2019-12-21] MEDS: Multivitamin W/ Minerals 1 TAB PO SCH (08:56)
[2019-12-21] MEDS: Folic Acid 1 MG TAB PO SCH (08:56)
[2019-12-21] MEDS: carBAMazepine 200 MG TAB PO SCH ×2 (08:57→17:35)
[2019-12-21] MEDS: Diazepam 5 MG TAB PO SCH ×3 (08:57→20:36)
[2019-12-21] MEDS: Cyanocobalamin (Vitamin B-12) 1,000 MCG TAB PO SCH (08:57)
[2019-12-21] MEDS: Mometasone/Formoterol 200/5 60 PUFF INH SCH ×2 (09:00→20:37)
[2019-12-21] MEDS: Tiotropium Bromide 4 GM INHALER IH SCH (09:05)
[2019-12-21] MEDS: Enoxaparin Sodium 40 MG/0.4 ML SYRINGE SC SCH (20:34)
[2019-12-22] MEDS: Albuterol 200 PUFF (6.7GM INHALER) INH SCH ×4 (03:45→20:55)
[2019-12-22 05:36] LABS: Hemoglobin 14.4 g/dL (14.0-18.0); Platelet Count 198 thou/uL (130-400)
[2019-12-22] MEDS: Gabapentin 300 MG CAP PO SCH ×3 (08:26→20:53)
[2019-12-22] MEDS: Folic Acid 1 MG TAB PO SCH (08:27)
[2019-12-22] MEDS: Diazepam 5 MG TAB PO SCH ×3 (08:27→20:54)
[2019-12-22] MEDS: Loratadine 10 MG TAB PO SCH (08:27)
[2019-12-22] MEDS: FLUoxetine HCl 10 MG CAP PO SCH (08:27)
[2019-12-22] MEDS: Lisinopril 10 MG TAB PO SCH (08:27)
[2019-12-22] MEDS: Famotidine 20 MG TAB PO SCH ×2 (08:28→20:54)
[2019-12-22] MEDS: Cyanocobalamin (Vitamin B-12) 1,000 MCG TAB PO SCH (08:28)
[2019-12-22] MEDS: Multivitamin W/ Minerals 1 TAB PO SCH (08:28)
[2019-12-22] MEDS: carBAMazepine 200 MG TAB PO SCH ×2 (08:28→17:42)
[2019-12-22] MEDS: Mometasone/Formoterol 200/5 60 PUFF INH SCH ×2 (08:31→20:55)
[2019-12-22] MEDS: Tiotropium Bromide 4 GM INHALER IH SCH (08:32)
[2019-12-22] MEDS: traMADol HCl 50 MG TAB PO PRN (10:22)
[2019-12-22] MEDS: Enoxaparin Sodium 40 MG/0.4 ML SYRINGE SC SCH (20:55)
[2019-12-23] MEDS: Albuterol 200 PUFF (6.7GM INHALER) INH SCH ×4 (02:54→20:12)
[2019-12-23] MEDS: Polyethylene Glycol 3350 17 GM Packet PO SCH (08:17)
[2019-12-23] MEDS: Famotidine 20 MG TAB PO SCH ×2 (08:21→20:12)
[2019-12-23] MEDS: FLUoxetine HCl 10 MG CAP PO SCH (08:22)
[2019-12-23] MEDS: Multivitamin W/ Minerals 1 TAB PO SCH (08:22)
[2019-12-23] MEDS: Gabapentin 300 MG CAP PO SCH ×3 (08:22→20:13)
[2019-12-23] MEDS: Cyanocobalamin (Vitamin B-12) 1,000 MCG TAB PO SCH (08:23)
[2019-12-23] MEDS: Senokot S 8.6-50 MG TAB PO SCH ×2 (08:23→20:13)
[2019-12-23] MEDS: Diazepam 5 MG TAB PO SCH ×3 (08:23→20:14)
[2019-12-23] MEDS: Loratadine 10 MG TAB PO SCH (08:23)
[2019-12-23] MEDS: carBAMazepine 200 MG TAB PO SCH ×2 (08:23→17:00)
[2019-12-23] MEDS: Lisinopril 10 MG TAB PO SCH (08:24)
[2019-12-23] MEDS: Mometasone/Formoterol 200/5 60 PUFF INH SCH ×2 (09:36→20:10)
[2019-12-23] MEDS: Tiotropium Bromide 4 GM INHALER IH SCH (09:37)
[2019-12-23] MEDS: Folic Acid 1 MG TAB PO SCH (09:39)
[2019-12-23] MEDS: traMADol HCl 50 MG TAB PO PRN (16:59)
[2019-12-23] MEDS: Cyclobenzaprine 10 MG TAB PO PRN (20:12)
[2019-12-23] MEDS: Enoxaparin Sodium 40 MG/0.4 ML SYRINGE SC SCH (20:13)
[2019-12-24] MEDS: Albuterol 200 PUFF (6.7GM INHALER) INH SCH ×4 (03:26→20:38)
[2019-12-24 05:24] LABS: Platelet Count 186 thou/uL (130-400)
[2019-12-24] MEDS: FLUoxetine HCl 10 MG CAP PO SCH (09:04)
[2019-12-24] MEDS: Gabapentin 300 MG CAP PO SCH ×3 (09:04→20:36)
[2019-12-24] MEDS: Lisinopril 10 MG TAB PO SCH (09:05)
[2019-12-24] MEDS: Famotidine 20 MG TAB PO SCH ×2 (09:05→20:37)
[2019-12-24] MEDS: Loratadine 10 MG TAB PO SCH (09:05)
[2019-12-24] MEDS: Multivitamin W/ Minerals 1 TAB PO SCH (09:06)
[2019-12-24] MEDS: Diazepam 5 MG TAB PO SCH ×3 (09:06→20:36)
[2019-12-24] MEDS: Folic Acid 1 MG TAB PO SCH (09:06)
[2019-12-24] MEDS: carBAMazepine 200 MG TAB PO SCH ×2 (09:06→16:32)
[2019-12-24] MEDS: Senokot S 8.6-50 MG TAB PO SCH ×2 (09:06→20:38)
[2019-12-24] MEDS: Cyanocobalamin (Vitamin B-12) 1,000 MCG TAB PO SCH (09:07)
[2019-12-24] MEDS: Mometasone/Formoterol 200/5 60 PUFF INH SCH ×2 (09:08→20:38)
[2019-12-24] MEDS: Polyethylene Glycol 3350 17 GM Packet PO SCH (09:10)
[2019-12-24] MEDS: Tiotropium Bromide 4 GM INHALER IH SCH (09:18)
[2019-12-24] MEDS: traMADol HCl 50 MG TAB PO PRN (09:55)
[2019-12-24 11:12] VITALS: BMI 25.2
[2019-12-24] MEDS: Cyclobenzaprine 10 MG TAB PO PRN (20:37)
[2019-12-24] MEDS: Enoxaparin Sodium 40 MG/0.4 ML SYRINGE SC SCH (20:38)
[2019-12-25] MEDS: Albuterol 200 PUFF (6.7GM INHALER) INH SCH ×2 (03:51→08:32)
[2019-12-25 05:50] VITALS: TEMP 98.2
[2019-12-25] MEDS: traMADol HCl 50 MG TAB PO PRN (08:19)
[2019-12-25] MEDS: carBAMazepine 200 MG TAB PO SCH (08:20)
[2019-12-25] MEDS: Gabapentin 300 MG CAP PO SCH (08:21)
[2019-12-25] MEDS: Multivitamin W/ Minerals 1 TAB PO SCH (08:21)
[2019-12-25] MEDS: Famotidine 20 MG TAB PO SCH (08:21)
[2019-12-25] MEDS: FLUoxetine HCl 10 MG CAP PO SCH (08:21)
[2019-12-25] MEDS: Senokot S 8.6-50 MG TAB PO SCH (08:22)
[2019-12-25] MEDS: Folic Acid 1 MG TAB PO SCH (08:22)
[2019-12-25] MEDS: Loratadine 10 MG TAB PO SCH (08:22)
[2019-12-25] MEDS: Cyanocobalamin (Vitamin B-12) 1,000 MCG TAB PO SCH (08:22)
[2019-12-25] MEDS: Lisinopril 10 MG TAB PO SCH (08:23)
[2019-12-25] MEDS: Diazepam 5 MG TAB PO SCH (08:23)
[2019-12-25] MEDS: Polyethylene Glycol 3350 17 GM Packet PO SCH (08:23)
[2019-12-25] MEDS: Mometasone/Formoterol 200/5 60 PUFF INH SCH (08:26)
[2019-12-25] MEDS: Tiotropium Bromide 4 GM INHALER IH SCH (08:30)
[2019-12-25 08:34] VITALS: BP 99/59
--- NOTE | 2019-12-25 08:43 | DIS ---
DATE OF ADMISSION: 12/09/2019 DATE OF DISCHARGE: 12/25/2019 ADMISSION DIAGNOSES: Dehydration, lactic acidosis, COVID positive, generalized weakness, emphysema. SECONDARY DIAGNOSES: Seizure disorder, hypertension, chronic back pain, elevated liver enzymes, and reactive depression. PROCEDURES PERFORMED: 12/08/2019, chest x-ray showed no definite acute findings. 12/08/2019, CTA of chest showed no evidence for pulmonary embolism. Very severe emphysematous changes. No findings of pneumonia at this time. Not mentioned above, but present are some areas of scarring in the lung apices. One of those areas in the very top of the left lung apex is slightly spiculated and is about 1 cm in size. Just scarring in view of the remainder of the patient's lungs, it might be prudent to get a followup chest x-ray of this area in the next 3 to 6 months, checking for any potential growth. HOSPITAL COURSE: A 59-year-old male initially presented to the [facility] Emergency Department with progressive weakness, decreased oral intake and malaise with cough and dyspnea related to recent diagnosis of COVID on 12/03/2019. He had been treated as an outpatient with azithromycin and dexamethasone. However, his status declined. In the emergency department, he showed to have an elevated lactic acid level and dehydration for which he was treated with IV Rocephin, IV dexamethasone, and IV fluids. He was admitted under observation status secondary to dehydration, physical deconditioning and concern for COVID pneumonia. The patient's oral intake improved and IV fluids were able to be discontinued with resolution of his lactic acidosis. Antibiotics were discontinued secondary to his imaging as above; however, he was started on controller medication for COPD. He has remained afebrile without leukocytosis. His initial elevation of liver enzymes resolved. Upon evaluation by Physical Therapy and Occupational Therapy, the patient was deemed unable to return home secondary to his deconditioned state and therefore transitioned from observation inpatient status to swing bed status for further [facility] and therapy. In addition to this, the patient's typical caregiver who is his sister, unfortunately was found in his home further inhibiting his ability to transition home acutely. The patient had understandable grief reaction for which he was started on fluoxetine. The patient did show improved mobility and functional status and working with therapy and at this time is able to transition, where he will stay with his other sister and continue to have therapy at [facility] as an outpatient. DISPOSITION: The patient will discharge home, so I will discharge to his sister's home to stay with her and may follow up with myself in the clinic in 1 week. He is to continue therapy at [facility] as an outpatient. DISCHARGE MEDICATIONS: 1. Dulera 200 mcg/5 mcg inhaler 2 puffs b.i.d. 2. DuoNeb q.6 hours p.r.n. 3. Diazepam 5 mg t.i.d. 4. Proventil inhaler 2 puffs q.4 hours p.r.n. 5. Gabapentin 300 mg t.i.d. 6. Folic acid 1 mg daily. 7. Tegretol 200 mg b.i.d. 8. Tramadol 50 mg q.4 hours p.r.n. 9. Lisinopril has been decreased from his 20 mg dose down to 5 mg secondary to low blood pressure readings during his stay. TIME SPENT: Total time spent in discharging this patient greater than 30 minutes. Job ID: [id number]
== END 2019-12-25 11:50 | disposition home or self-care (01) | DRG 947 ==
LOC: BURMED 18:08
PROVIDERS: ADMIT Family Medicine; ATTEND Family Medicine
DX: R53.81 Other malaise (principal); U07.1 COVID-19; E87.2 Acidosis; E86.0 Dehydration; F43.20 Adjustment disorder, unspecified; G40.909 Epilepsy, unspecified, not intractable, without status epilepticus; I10 Essential (primary) hypertension; G89.29 Other chronic pain; M54.9 Dorsalgia, unspecified; R79.89 Other specified abnormal findings of blood chemistry; F32.9 Major depressive disorder, single episode, unspecified; Z88.8 Allergy status to other drugs, medicaments and biological substances; J30.9 Allergic rhinitis, unspecified; Z90.49 Acquired absence of other specified parts of digestive tract; Z87.891 Personal history of nicotine dependence; Z79.891 Long term (current) use of opiate analgesic; J43.9 Emphysema, unspecified; Z79.899 Other long term (current) drug therapy
CPT/HCPCS: 36415; 80053; 82565; 85014; 85018; 85025; 85049; 94664; J0696; J1650; J3490; J7611; Q0162

== ENCOUNTER 2021-10-31 12:32 | Emergency (ER) | payer MEDICARE, MEDICAID ==
[2021-10-31] MEDS ORDERED: Ketorolac Tromethamine 30 MG/ML VIAL ONE (13:09)
== END 2021-10-31 16:23 | disposition home or self-care (01) ==
LOC: BURERS 12:32
DX: M54.6 Pain in thoracic spine (principal); I10 Essential (primary) hypertension; Z87.891 Personal history of nicotine dependence; Z79.899 Other long term (current) drug therapy
CPT/HCPCS: 93005; 96374; J1885

== ENCOUNTER 2023-04-06 09:32 | Emergency (ER) | payer MEDICARE, MEDICAID | END 2023-04-06 09:58 | disposition home or self-care (01) | LOC: BURERS 09:32 | DX: L60.0 Ingrowing nail (principal); I10 Essential (primary) hypertension; G40.909 Epilepsy, unspecified, not intractable, without status epilepticus; Z87.891 Personal history of nicotine dependence; Z79.899 Other long term (current) drug therapy | CPT/HCPCS: 99283 ==

== ENCOUNTER 2023-06-12 23:27 | Emergency (ER) | payer MEDICARE, MEDICAID, OTHER ==
[2023-06-13 00:19] LABS: ALT (SGPT) 22 U/L (8-55); AST (SGOT) 23 U/L (5-34); Alcohol 185.9 mg/dL (Less than 10); Alkaline Phosphatase 76 U/L (40-110); Anion Gap 18 mmol/L (10-20); BUN (Urea Nitrogen) 15 mg/dL (8.4-25.7); Bilirubin, Total 0.3 mg/dL (0.2-1.2); Calc. Creatinine Clearance 0 mL/min (70-130); Calcium 8.5 mg/dL (7.8-10.44); Carbon Dioxide 19 mmol/L (23-31); Chloride 105 mmol/L (98-107); Estimated GFR 71; Globulin 3.1 g/dL (2.4-3.5); Glucose 90 mg/dL (80-115); Potassium 3.8 mmol/L (3.5-5.1); Protein, Total 7.1 g/dL (5.8-8.1); Sodium 138 mmol/L (136-145)
[2023-06-13] MEDS ORDERED: Ondansetron PF 4 MG/2 ML Vial ONE (00:22)
[2023-06-13 00:31] LABS: #Eosinphils 0.3 thou/uL (0.0-0.7); #Lymphocytes 1.8 thou/uL (1.20-3.40); #Monocytes 0.4 thou/uL (0.11-0.59); %Basophils 0.7 % (0.0-1.0); %Eosinophils 6.2 % (0.0-10.0); %Lymphocytes 39.5 % (21.0-51.0); %Monocytes 8.8 % (0.0-10.0); %Neutrophils 44.7 % (42.0-75.0); Hematocrit 42.1 % (42.0-52.0); Hemoglobin 14.6 g/dL (14.0-18.0); Mean Corpuscular HGB CONC 34.7 g/dL (32.0-36.0); Mean Corpuscular Hemoglobin 33.7 pg (27.0-31.0); Mean Corpuscular Volume 97.1 fl (78.0-98.0); Mean Platelet Volume 6.8 fL (7.4-10.4); Platelet Count 184 10x3/uL (130-400); Red Blood Cell (RBC) Count 4.34 mill/uL (4.70-6.10); White Blood Cell (WBC) Count 4.5 10x3/uL (4.8-10.8)
[2023-06-13] MEDS ORDERED: Ketorolac Tromethamine 30 MG (1 mL) VIAL ONE (02:23)
[2023-06-13] MEDS ORDERED: Iopamidol 370 76% 100 ML VIAL ONE (18:34)
== END 2023-06-13 03:16 | disposition home or self-care (01) ==
LOC: BURERS 23:27
DX: M54.50 Low back pain, unspecified (principal); I10 Essential (primary) hypertension; W22.8XXA Striking against or struck by other objects, initial encounter
CPT/HCPCS: 70450; 71260; 72125; 74177; 80053; 80307; 85025; 96361; 96374; 96375; J1885; J2405; Q9967

== ENCOUNTER 2024-09-18 09:30 | Emergency (ER) | payer MEDICARE, MEDICAID ==
[2024-09-18] MEDS ORDERED: HYDROcodone/Acetaminophen 5/325 mg Tablet ONE (11:12)
== END 2024-09-18 12:09 | disposition home or self-care (01) ==
LOC: BURERS 09:30
DX: S63.502A Unspecified sprain of left wrist, initial encounter (principal); S70.02XA Contusion of left hip, initial encounter; S30.0XXA Contusion of lower back and pelvis, initial encounter; I10 Essential (primary) hypertension; Z79.899 Other long term (current) drug therapy; W01.0XXA Fall on same level from slipping, tripping and stumbling without subsequent striking against object, initial encounter
CPT/HCPCS: 72131; 74176

== ENCOUNTER 2024-09-27 09:28 | Emergency (ER) | payer MEDICARE, MEDICAID ==
[2024-09-27 09:48] LABS: #Basophils 0.1 thou/uL (0.0-0.2); #Eosinophils 0.1 thou/uL (0.0-0.7); #Lymphocytes 1.3 thou/uL (1.20-3.40); #Monocytes 0.4 thou/uL (0.11-0.59); #Neutrophils 5.0 thou/uL (1.40-6.50); %Basophils 1.4 % (0.0-1.0); %Eosinophils 2.0 % (0.0-10.0); %Lymphocytes 18.7 % (21.0-51.0); %Monocytes 5.8 % (0.0-10.0); %Neutrophils 72.1 % (42.0-75.0); Hematocrit 41.8 % (42.0-52.0); Hemoglobin 14.8 g/dL (14.0-18.0); Mean Corpuscular Hemoglobin 31.3 pg (27.0-31.0); Mean Corpuscular Volume 88.4 fl (78.0-98.0); Platelet Count 183 10x3/uL (130-400); Red Blood Cell (RBC) Count 4.73 mill/uL (4.70-6.10); White Blood Cell (WBC) Count 7.0 10x3/uL (4.8-10.8)
[2024-09-27] MEDS ORDERED: Ondansetron PF 4 MG/2 ML Vial ONE (10:02)
[2024-09-27] MEDS ORDERED: Ketorolac Tromethamine 30 MG (1 mL) VIAL ONE (10:02)
[2024-09-27] MEDS ORDERED: Orphenadrine Citrate 60 MG/2 ML VIAL ONE (10:02)
[2024-09-27 10:08] LABS: ALT (SGPT) 16 U/L (Less than 45); AST (SGOT) 14 U/L (11-34); Albumin 4.3 g/dL (3.1-4.5); Alkaline Phosphatase 87 U/L (40-110); Anion Gap 14 mmol/L (10-20); BUN (Urea Nitrogen) 12 mg/dL (8.4-25.7); Bilirubin, Total 0.5 mg/dL (0.3-1.2); Calc. Creatinine Clearance 0 mL/min (70-130); Calcium 9.1 mg/dL (7.8-10.44); Carbon Dioxide 25 mmol/L (23-31); Chloride 101 mmol/L (98-107); Globulin 3.3 g/dL (2.4-3.5); Glucose 105 mg/dL (80-115); Magnesium 2.2 mg/dL (1.6-2.6); Potassium 4.1 mmol/L (3.5-5.1); Sodium 136 mmol/L (136-145)
[2024-09-27 10:09] LABS: Troponin I Less than 0.010 ng/mL (< 0.028)
[2024-09-27] MEDS ORDERED: Iopamidol 370 76% 100 ML VIAL ONE (10:22)
[2024-09-27 11:49] LABS: Glucose, Urine (Dipstick) Negative (Negative); Leukocyte Negative (Negative); Protein, Urine (Dipstick) Negative (Neg-Trace); Specific Gravity, Urine 1.015 (1.005-1.030)
[2024-09-27 11:57] LABS: Cocaine Metabolite Screen Negative (Negative); THC/Cannabinoid Screen Negative (Negative); Tricyclic Screen Negative (Negative)
[2024-09-27 11:59] LABS: Bacteria/HPF None Seen HPF (None Seen); CAUTI Indications for Culture Dysuria,urgency,freq; RBC/HPF None Seen HPF (0-3); Sperm/HPF Rare HPF (None Seen); WBC/HPF None Seen HPF (0-3)
[2024-09-27 12:00] LABS: Urine Culture Reflex No No
[2024-09-27 12:37] LABS: Troponin I Less than 0.010 ng/mL (< 0.028)
== END 2024-09-27 14:01 | disposition home or self-care (01) ==
LOC: BURERS 09:28
DX: R07.89 Other chest pain (principal); J01.90 Acute sinusitis, unspecified; E86.0 Dehydration; I10 Essential (primary) hypertension; E78.5 Hyperlipidemia, unspecified; Z79.899 Other long term (current) drug therapy
CPT/HCPCS: 70450; 71045; 71260; 74177; 80053; 80306; 81001; 83605; 83690; 83735; 83880; 84484 ×2; 85025; 85379; 93005; J1885; J2360; J2405; J2543; J2919; 36415; 96361; 96365; 96375; Q9967